=== PATIENT | male | born 1985 | race Hispanic/Latino ===

== ENCOUNTER 2018-03-17 22:57 | Emergency (ER) | payer BC ==
[2018-03-17 23:10] VITALS: BP 125/78; PULSE 75; RESP 16; TEMP 98.5; O2SAT 99
[2018-03-17] MEDS ORDERED: Tdap Vaccine 0.5 ml Vial (10-64 yrs) IM ONE ×2 (23:11→23:16)
[2018-03-17] MEDS ORDERED: Lidocaine 1% Inj (20ml) IJ ONE (23:11)
--- NOTE | 2018-03-17 23:13 | ED PDOC ---
Upper Extremity Pain/Injury Time Seen by Provider: 03/17/18 23:09 Chief Complaint (Nursing): Finger,Hand,&Wrist History Per: Patient Additional Complaint(s): Pt. states earlier today he accidentally cut himself with a new knife at home. Denies numbness, tingling, FB sensation, other injury. Past Medical History Reviewed: Historical Data, Nursing Documentation, Vital Signs Vital Signs: Last Vital Signs Temp 98.5 F 03/17/18 23:07 Pulse 75 03/17/18 23:07 Resp 16 03/17/18 23:07 BP 125/78 03/17/18 23:07 Pulse Ox 99 03/17/18 23:07 - Surgical History Surgical History: No Surg Hx - Family History Family History: States: No Known Family Hx - Immunization History Hx Tetanus Toxoid Vaccination: Yes (but not UTD) - Allergies Allergies/Adverse Reactions: Allergies Allergy/AdvReac Type Severity Reaction Status Date / Time No Known Allergies Allergy Verified 03/17/18 23:07 Review of Systems ROS Statement: Except As Marked, All Systems Reviewed And Found Negative Physical Exam - Physical Exam Appears: Positive for: Well, Non-toxic, No Acute Distress Skin: Positive for: Normal Color, Warm, DRY Eye Exam: Positive for: Normal appearance Pulses-Radial (L): 2+ Extremity: Positive for: Capillary Refill (< 2 seconds of L thumb), Other ( Thenar surface of LEFT hand with 2cm L shaped superficial laceration without active bleeding; L thumb with FROM actively) Neurologic/Psych: Positive for: Alert, Oriented - ECG O2 Sat by Pulse Oximetry: 99 - Progress ED Course And Treament: Tetanus prophylaxis administered. Procedures - Time-Out Type of Procedure: Laceration repair Site of Procedure: L hand Correct Patient: Yes Correct Procedure: Yes Correct Site Marked: Yes PA/Tech: Emily - Laceration/Wound Repair Laceration repair Wound Length (cm): 2 Wound's Depth, Shape: superficial, linear Wound Explored: clean Irrigated w/ Saline (ccs): 400 Betadine Prep?: Yes Anesthesia: 1% Lidocaine Volume Anesthetic (ccs): 4 Wound Repaired With: Sutures Suture Size/Type: 5:0, proline Number of Sutures: 7 Wound Complexity: Simple Progress: After procedure pt. remains to have FROM actively of LEFT thumb. Bacitracin ointment and DSD applied. Disposition - Clinical Impression Clinical Impression: Hand laceration - Patient ED Disposition Is Patient to be Admitted: No - Disposition Referrals: [facility] Hidalgo [Outside] Disposition: Routine/Home Disposition Time: 23:50 Condition: STABLE Additional Instructions: Suture removal in 7 days Return to ED immediately for any concerns or questions Instructions: Laceration Repair With Stitches (DC) Forms: [employer] (Libyan) Print Language: MONTSERRATIAN
== END 2018-03-18 00:25 | disposition home or self-care (01) ==
LOC: H.ER 22:57
DX: S61.012A Laceration without foreign body of left thumb without damage to nail, initial encounter (principal); W26.0XXA Contact with knife, initial encounter; Y92.89 Other specified places as the place of occurrence of the external cause